=== PATIENT | female | born 1935 | race Caucasian/White ===

== ENCOUNTER 2019-07-26 02:48 | Inpatient (IN) ==
[2019-07-26] MEDS ORDERED: Naloxone 0.4 MG/ML INJ IVP PRN (05:44)
[2019-07-26] MEDS ORDERED: D5% in Water 1,000 ML IVC PRN (05:44)
[2019-07-26] MEDS ORDERED: Dextrose Gel 15 GM/37.5 ML TUBE PO PRN ×2 (05:44)
[2019-07-26] MEDS ORDERED: *HR* Dextrose 50 % in Water (Syg) 50 ML SYRINGE IVP PRN (05:44)
[2019-07-26] MEDS ORDERED: SODIUM CHLORIDE 0.9% IVPB ONE (05:49)
[2019-07-26] MEDS ORDERED: PHYTONADIONE IVPB ONE (05:49)
[2019-07-26 06:42] LABS: Basophils # 0.1 K/mcL (0.0-0.2); Basophils % 0.6 %; Eosinophils % 0.2 %; Hematocrit 33.9 % (35.3-44.9); Immature Granulocytes % 0.9 % (0-4); Lymphocytes # 0.9 K/mcL (0.6-4.6); Lymphocytes % 5.6 %; Mean Corpuscular HGB Conc 32.4 g/dL (31.6-35.5); Mean Corpuscular Hemoglobin 32.1 pg (28.0-33.3); Mean Corpuscular Volume 98.8 fL (83.0-100.0); Mean Platelet Volume 10.5 fL (9.4-12.4); Monocytes # 1.6 K/mcL (0.0-1.3); Monocytes % 10.1 %; Neutrophils # 12.7 K/mcL (1.6-8.9); Platelet Count 193 K/mcL (140-400); Red Blood Count 3.43 M/mcL (3.82-4.97); Red Cell Distribution Width 13.1 % (11.5-14.5); Segmented Neutrophils % 82.6 %; White Blood Count 15.4 K/mcL (4.3-11.1)
[2019-07-26] MEDS ORDERED: *HR* Phytonadione 10 MG/ML AMPUL SQ ONE (06:45)
[2019-07-26 06:54] LABS: Prothrombin Time 65.5 Seconds (9.4-12.1)
[2019-07-26 06:55] LABS: INR 5.8
[2019-07-26 07:01] LABS: Albumin 3.6 g/dL (3.5-5.7); Albumin/Globulin Ratio 1.3 (1.1-2.2); Bilirubin,Total 0.4 mg/dL (0.3-1.0); Calcium 8.6 mg/dL (8.6-10.3); Chol/HDL Ratio 2.3 (0-4.9); Globulin 2.8 g/dL (2.4-3.5); Potassium 5.1 mEq/L (3.5-5.1); Total Protein 6.4 g/dL (6.4-8.9)
[2019-07-26] MEDS ORDERED: Ondansetron 4 MG/2 ML VIAL IVP PRN (08:35)
[2019-07-26] MEDS ORDERED: Furosemide 40 MG TABLET PO SCH (09:00)
[2019-07-26] MEDS ORDERED: NON-FORMULARY MEDICATION 1 EACH EACH (Fluticasone/Vilanterol [Breo Ellipta 200-25 Mcg Inh] PO SCH (09:00)
[2019-07-26 09:39] LABS: Estimated Average Glucose 171 mg/dl
[2019-07-26] MEDS: Pregabalin 75 MG CAPSULE PO SCH ×2 (11:13→21:56)
[2019-07-26] MEDS: Cholecalciferol (D-3) 1,000 UNIT (25MCG) TABLET PO SCH (11:13)
[2019-07-26] MEDS: *HR* Digoxin 0.125 MG TABLET PO SCH (11:13)
[2019-07-26] MEDS: Insulin LISPRO 300 UNITS/3 ML VIAL SQ SCH ×3 (11:15→18:11)
[2019-07-26] MEDS ORDERED: Acetaminophen 325 MG TABLET PO PRN (11:18)
[2019-07-26] MEDS: Tiotropium 18 MCG inhalation IH SCH (11:51)
[2019-07-26 17:28] LABS: INR 5.9; Prothrombin Time 67.5 Seconds (9.4-12.1)
[2019-07-26] MEDS ORDERED: *HR* Phytonadione 5 MG TABLET PO ONE (17:34)
[2019-07-26] MEDS ORDERED: *HR* HYDROcodone/Acet 5/325 mg TABLET PO ONE (19:31)
[2019-07-26] MEDS: Budesonide/Formoterol 160/4.5 1 PUFF INH IH SCH (19:32)
[2019-07-26 23:06] LABS: Bilirubin,Urine Negative (Negative); Blood,Urine Moderate (Negative); Clarity,Urine Turbid (Clear); Color,Urine Yellow (Yellow); Glucose,Urine (UA) Normal (Normal); Ketones,Urine Negative (Negative); Leukocyte Esterase,Urine Large (Negative); Nitrite,Urine Negative (Negative); Protein,Urine 30 mg/dL (Neg-Trace); Specific Gravity,Urine 1.023 (1.010-1.025); Urobilinogen,Urine Normal (Normal)
[2019-07-26 23:09] LABS: Bacteria,Urine Moderate per hpf (None-Few); Hyaline Casts,Urine None Seen per lpf (None-Few); Squamous Epithelial Cell,Urine Few per lpf (None-Few); WBC,Urine TNTC per hpf (0-3)
[2019-07-27 04:09] LABS: INR 3.9
[2019-07-27 04:11] LABS: Basophils # 0.1 K/mcL (0.0-0.2); Basophils % 0.5 %; Eosinophils # 0.1 K/mcL (0.0-0.6); Eosinophils % 0.6 %; Hemoglobin 10.2 g/dL (11.5-15.4); Immature Granulocytes % 0.9 % (0-4); Lymphocytes % 21.8 %; Mean Corpuscular HGB Conc 32.9 g/dL (31.6-35.5); Mean Corpuscular Hemoglobin 32.3 pg (28.0-33.3); Mean Corpuscular Volume 98.1 fL (83.0-100.0); Mean Platelet Volume 10.5 fL (9.4-12.4); Monocytes # 1.9 K/mcL (0.0-1.3); Monocytes % 13.4 %; Neutrophils # 8.8 K/mcL (1.6-8.9); Platelet Count 204 K/mcL (140-400); Red Blood Count 3.16 M/mcL (3.82-4.97); Red Cell Distribution Width 13.1 % (11.5-14.5); Segmented Neutrophils % 62.8 %; White Blood Count 13.9 K/mcL (4.3-11.1)
[2019-07-27 04:15] LABS: Prothrombin Time 44.1 Seconds (9.4-12.1)
[2019-07-27 04:31] LABS: Calcium 9.1 mg/dL (8.6-10.3); Magnesium 2.1 mg/dL (1.6-2.6); Potassium 4.4 mEq/L (3.5-5.1)
[2019-07-27] MEDS: Levalbuterol Neb 0.63 MG/3 ML IH PRN ×2 (08:05→20:18)
[2019-07-27] MEDS: Budesonide/Formoterol 160/4.5 1 PUFF INH IH SCH ×2 (08:05→20:18)
[2019-07-27] MEDS: Tiotropium 18 MCG inhalation IH SCH (08:06)
[2019-07-27] MEDS ORDERED: Furosemide 20 MG TABLET PO SCH (09:00)
[2019-07-27] MEDS ORDERED: CefTRIAXone 1,000 MG VIAL ONE (09:14)
[2019-07-27] MEDS ORDERED: 0.9 % Sodium Chloride 250 ML ONE (09:16)
[2019-07-27] MEDS: Cholecalciferol (D-3) 1,000 UNIT (25MCG) TABLET PO SCH (09:19)
[2019-07-27] MEDS: Pregabalin 75 MG CAPSULE PO SCH ×2 (09:19→20:52)
[2019-07-27] MEDS: Insulin LISPRO 300 UNITS/3 ML VIAL SQ SCH ×3 (09:20→18:16)
[2019-07-27] MEDS: *HR* Digoxin 0.125 MG TABLET PO SCH (09:20)
[2019-07-27] MEDS: cefTRIAXone 1,000 MG in 0.9 % Sodium Chloride Mini Bag 100 ML IVPB SCH (12:53)
[2019-07-27 16:16] LABS: INR 1.8; Prothrombin Time 20.7 Seconds (9.4-12.1)
[2019-07-28] MEDS ORDERED: Insulin LISPRO 300 UNITS/3 ML VIAL SQ SCH
[2019-07-28 03:49] LABS: Basophils # 0.1 K/mcL (0.0-0.2); Basophils % 0.5 %; Eosinophils % 0.1 %; Hemoglobin 9.5 g/dL (11.5-15.4); Immature Granulocytes % 1.5 % (0-4); Lymphocytes # 2.6 K/mcL (0.6-4.6); Lymphocytes % 14.5 %; Mean Corpuscular HGB Conc 33.9 g/dL (31.6-35.5); Mean Corpuscular Volume 94.3 fL (83.0-100.0); Mean Platelet Volume 10.7 fL (9.4-12.4); Monocytes # 2.7 K/mcL (0.0-1.3); Monocytes % 14.5 %; Neutrophils # 12.6 K/mcL (1.6-8.9); Platelet Count 187 K/mcL (140-400); Red Blood Count 2.97 M/mcL (3.82-4.97); Segmented Neutrophils % 68.9 %; White Blood Count 18.3 K/mcL (4.3-11.1)
[2019-07-28 03:58] LABS: INR 1.4; Prothrombin Time 15.4 Seconds (9.4-12.1)
[2019-07-28 04:14] LABS: Calcium 8.6 mg/dL (8.6-10.3); Potassium 4.4 mEq/L (3.5-5.1)
[2019-07-28] MEDS: cefTRIAXone 1,000 MG in 0.9 % Sodium Chloride Mini Bag 100 ML IVPB SCH (06:01)
[2019-07-28] MEDS: Levalbuterol Neb 0.63 MG/3 ML IH PRN ×2 (08:02→21:27)
[2019-07-28] MEDS: Budesonide/Formoterol 160/4.5 1 PUFF INH IH SCH ×2 (08:02→21:27)
[2019-07-28] MEDS: Tiotropium 18 MCG inhalation IH SCH (08:02)
[2019-07-28] MEDS: *HR* Digoxin 0.125 MG TABLET PO SCH (09:14)
[2019-07-28] MEDS: Pregabalin 75 MG CAPSULE PO SCH ×2 (09:14→20:34)
[2019-07-28] MEDS: Cholecalciferol (D-3) 1,000 UNIT (25MCG) TABLET PO SCH (09:14)
[2019-07-28] MEDS ORDERED: Acetaminophen IV 1,000 MG/100 ML INFUS..BTL ONE (10:51)
[2019-07-28] MEDS ORDERED: Famotidine 20 MG/2 ML VIAL ONE (10:51)
[2019-07-28] MEDS ORDERED: Acetaminophen IV 1,000 MG/100 ML INFUS..BTL IVPB ONE (11:00)
[2019-07-28] MEDS ORDERED: Famotidine 20 MG/2 ML VIAL IVP ONE (11:00)
[2019-07-28] MEDS ORDERED: Clindamycin 900 MG/50 ML 900 MG/50 ML IV.SOLN IVPB ONE ×2 (11:02→11:28)
[2019-07-28] MEDS ORDERED: Ondansetron 4 MG/2 ML VIAL ONE (11:57)
[2019-07-28] MEDS ORDERED: *HR* Succinylcholine 200 MG/10 ML VIAL IVP ONE (11:57)
[2019-07-28] MEDS ORDERED: Lidocaine HCL 4 ML Topical Solution (Laryng-O-Jet Kit Sterile Pak) TP ONE (11:57)
[2019-07-28] MEDS ORDERED: *HR* Propofol 200 MG/20 ML VIAL IVP ONE (11:57)
[2019-07-28] MEDS ORDERED: Lidocaine -MPF 2% 2 ML VIAL ONE (11:57)
[2019-07-28] MEDS ORDERED: *HR* PHENYLEPHRINE 1,000 MCG/10 ML SYRINGE IVP ONE (11:57)
[2019-07-28] MEDS ORDERED: Morphine Sulfate 2 MG/ML SYRINGE IVP PRN (11:59)
[2019-07-28] MEDS ORDERED: Ondansetron 4 MG/2 ML VIAL IVP ONE (11:59)
[2019-07-28] MEDS ORDERED: Dexamethasone 4 MG/ML VIAL IVP ONE (11:59)
[2019-07-28] MEDS ORDERED: D5% in Water 1,000 ML IVC PRN (14:46)
[2019-07-28] MEDS ORDERED: Ondansetron 4 MG/2 ML VIAL IVP PRN (14:46)
[2019-07-28] MEDS ORDERED: Naloxone 0.4 MG/ML INJ IVP PRN (14:46)
[2019-07-28] MEDS ORDERED: *HR* Dextrose 50 % in Water (Syg) 50 ML SYRINGE IVP PRN (14:46)
[2019-07-28] MEDS ORDERED: Dextrose Gel 15 GM/37.5 ML TUBE PO PRN ×2 (14:46)
[2019-07-28] MEDS: Furosemide 20 MG TABLET PO SCH (17:16)
[2019-07-28] MEDS: Clindamycin 900 MG/50 ML 900 MG/50 ML IV.SOLN IVPB SCH (17:23)
[2019-07-29] MEDS: Clindamycin 900 MG/50 ML 900 MG/50 ML IV.SOLN IVPB SCH (00:31)
[2019-07-29 06:42] LABS: Basophils # 0.1 K/mcL (0.0-0.2); Basophils % 0.4 %; Eosinophils % 0.2 %; Hemoglobin 8.2 g/dL (11.5-15.4); Immature Granulocytes % 1.2 % (0-4); Lymphocytes # 1.4 K/mcL (0.6-4.6); Lymphocytes % 8.6 %; Mean Corpuscular HGB Conc 34.2 g/dL (31.6-35.5); Mean Corpuscular Hemoglobin 32.7 pg (28.0-33.3); Mean Corpuscular Volume 95.6 fL (83.0-100.0); Mean Platelet Volume 10.6 fL (9.4-12.4); Monocytes # 1.8 K/mcL (0.0-1.3); Monocytes % 11.4 %; Neutrophils # 12.5 K/mcL (1.6-8.9); Platelet Count 176 K/mcL (140-400); Red Blood Count 2.51 M/mcL (3.82-4.97); Red Cell Distribution Width 13.2 % (11.5-14.5); Segmented Neutrophils % 78.2 %
[2019-07-29] MEDS: Tiotropium 18 MCG inhalation IH SCH (06:55)
[2019-07-29 06:59] LABS: INR 1.4; Prothrombin Time 15.7 Seconds (9.4-12.1)
[2019-07-29] MEDS ORDERED: cefTRIAXone 1,000 MG in 0.9 % Sodium Chloride Mini Bag 100 ML IVPB SCH (07:00)
[2019-07-29 07:02] LABS: Potassium 4.6 mEq/L (3.5-5.1)
[2019-07-29] MEDS: Levalbuterol Neb 0.63 MG/3 ML IH PRN ×2 (07:26→21:42)
[2019-07-29] MEDS: Budesonide/Formoterol 160/4.5 1 PUFF INH IH SCH ×2 (07:27→21:42)
[2019-07-29] MEDS: Pregabalin 75 MG CAPSULE PO SCH ×2 (10:41→21:28)
[2019-07-29] MEDS: Cholecalciferol (D-3) 1,000 UNIT (25MCG) TABLET PO SCH (10:43)
[2019-07-29] MEDS: Furosemide 40 MG TABLET PO SCH (10:48)
[2019-07-29] MEDS: *HR* Digoxin 0.125 MG TABLET PO SCH (10:48)
[2019-07-29] MEDS ORDERED: D5% in Water 1,000 ML IVC PRN (11:01)
[2019-07-29 12:10] LABS: Hemoglobin 8.4 g/dL (11.5-15.4)
[2019-07-29] MEDS: Insulin LISPRO 300 UNITS/3 ML VIAL SQ SCH ×3 (13:32→21:21)
[2019-07-29] MEDS: Acetaminophen 325 MG TABLET PO PRN (17:05)
[2019-07-29] MEDS ORDERED: *HR* Warfarin 1 MG TABLET PO ONE (18:00)
[2019-07-29] MEDS ORDERED: Warfarin perPT PO PRN (18:00)
[2019-07-30] MEDS: Cortisporin *EAR*Susp 10 ML BOTTLE LEFT EAR PRN ×2 (01:36→20:54)
[2019-07-30 04:58] LABS: INR 1.3; Prothrombin Time 15.3 Seconds (9.4-12.1)
[2019-07-30 04:59] LABS: Basophils # 0.1 K/mcL (0.0-0.2); Basophils % 0.6 %; Eosinophils # 0.2 K/mcL (0.0-0.6); Eosinophils % 1.4 %; Hematocrit 24.4 % (35.3-44.9); Hemoglobin 8.1 g/dL (11.5-15.4); Immature Granulocytes % 1.8 % (0-4); Lymphocytes # 1.7 K/mcL (0.6-4.6); Lymphocytes % 11.5 %; Mean Corpuscular HGB Conc 33.2 g/dL (31.6-35.5); Mean Corpuscular Hemoglobin 32.7 pg (28.0-33.3); Mean Corpuscular Volume 98.4 fL (83.0-100.0); Mean Platelet Volume 10.6 fL (9.4-12.4); Monocytes # 1.6 K/mcL (0.0-1.3); Monocytes % 11.3 %; Neutrophils # 10.7 K/mcL (1.6-8.9); Nucleated Red Blood Cells 0.1 /100 WBC (0); Platelet Count 201 K/mcL (140-400); Red Blood Count 2.48 M/mcL (3.82-4.97); Red Cell Distribution Width 13.4 % (11.5-14.5); Segmented Neutrophils % 73.4 %; White Blood Count 14.5 K/mcL (4.3-11.1)
[2019-07-30 05:17] LABS: BUN/Creatinine Ratio 41 (6-26); Blood Urea Nitrogen 33 mg/dL (8-23); Calcium 8.2 mg/dL (8.6-10.3); Carbon Dioxide 29 mEq/L (23-29); Chloride 96 mEq/L (98-107); Glucose 180 mg/dL (70-105); Osmolality,Calculated 292 (280-300); Potassium 4.1 mEq/L (3.5-5.1); Sodium 135 mEq/L (136-145); eGFR For African Americans > 60 (> 60); eGFR For Non-African Americans > 60 (> 60)
[2019-07-30] MEDS: Levalbuterol Neb 0.63 MG/3 ML IH PRN ×2 (07:37→20:23)
[2019-07-30] MEDS: Budesonide/Formoterol 160/4.5 1 PUFF INH IH SCH ×2 (07:38→20:23)
[2019-07-30] MEDS: Tiotropium 18 MCG inhalation IH SCH (07:38)
[2019-07-30] MEDS: *HR* Digoxin 0.125 MG TABLET PO SCH (09:48)
[2019-07-30] MEDS: Acetaminophen 325 MG TABLET PO PRN ×2 (09:48→17:49)
[2019-07-30] MEDS: Sennosides 8.6 MG TABLET PO SCH (09:48)
[2019-07-30] MEDS: Cholecalciferol (D-3) 1,000 UNIT (25MCG) TABLET PO SCH (09:49)
[2019-07-30] MEDS: Pregabalin 75 MG CAPSULE PO SCH ×2 (09:49→20:52)
[2019-07-30] MEDS: Insulin LISPRO 300 UNITS/3 ML VIAL SQ SCH ×4 (09:50→20:54)
[2019-07-30] MEDS ORDERED: Bisacodyl 10 MG RECTAL SUPPOSITORY RC ONE (12:24)
[2019-07-30 12:40] LABS: Hematocrit 23.3 % (35.3-44.9); Hemoglobin 8.2 g/dL (11.5-15.4)
[2019-07-30] MEDS: Furosemide 20 MG TABLET PO SCH (15:08)
[2019-07-30] MEDS ORDERED: *HR* Warfarin 3 MG TABLET PO ONE (18:00)
[2019-07-31] MEDS: Cortisporin *EAR*Susp 10 ML BOTTLE LEFT EAR PRN ×2 (05:15→22:06)
[2019-07-31 06:53] LABS: Basophils % 0.2 %; Eosinophils # 0.3 K/mcL (0.0-0.6); Eosinophils % 2.1 %; Hematocrit 23.2 % (35.3-44.9); Hemoglobin 7.6 g/dL (11.5-15.4); Immature Granulocytes % 1.8 % (0-4); Lymphocytes # 1.5 K/mcL (0.6-4.6); Mean Corpuscular HGB Conc 32.8 g/dL (31.6-35.5); Mean Corpuscular Hemoglobin 32.6 pg (28.0-33.3); Mean Corpuscular Volume 99.6 fL (83.0-100.0); Mean Platelet Volume 10.3 fL (9.4-12.4); Monocytes # 1.6 K/mcL (0.0-1.3); Neutrophils # 12.6 K/mcL (1.6-8.9); Nucleated Red Blood Cells 0.1 /100 WBC (0); Platelet Count 228 K/mcL (140-400); Red Blood Count 2.33 M/mcL (3.82-4.97); Red Cell Distribution Width 13.6 % (11.5-14.5); Segmented Neutrophils % 76.9 %; White Blood Count 16.4 K/mcL (4.3-11.1)
[2019-07-31 06:56] LABS: INR 1.4; Prothrombin Time 15.6 Seconds (9.4-12.1)
[2019-07-31] MEDS: *HR* Digoxin 0.125 MG TABLET PO SCH (07:42)
[2019-07-31] MEDS: Furosemide 40 MG TABLET PO SCH (07:43)
[2019-07-31] MEDS: Acetaminophen 325 MG TABLET PO PRN ×2 (07:51→18:20)
[2019-07-31] MEDS: Pregabalin 75 MG CAPSULE PO SCH ×2 (07:52→20:44)
[2019-07-31] MEDS: Cholecalciferol (D-3) 1,000 UNIT (25MCG) TABLET PO SCH (07:52)
[2019-07-31] MEDS: Sennosides 8.6 MG TABLET PO SCH (07:52)
[2019-07-31] MEDS: Insulin LISPRO 300 UNITS/3 ML VIAL SQ SCH ×4 (07:53→20:44)
[2019-07-31] MEDS: Tiotropium 18 MCG inhalation IH SCH (08:12)
[2019-07-31] MEDS: Levalbuterol Neb 0.63 MG/3 ML IH PRN ×2 (08:12→21:54)
[2019-07-31] MEDS: Budesonide/Formoterol 160/4.5 1 PUFF INH IH SCH ×2 (08:13→21:54)
[2019-07-31] MEDS ORDERED: 0.9 % Sodium Chloride 500 ML ONE (10:46)
[2019-07-31] MEDS ORDERED: *HR* Warfarin 4 MG TABLET PO ONE (18:00)
[2019-07-31] MEDS ORDERED: Insulin DETEMIR 100 UNIT/ML X5UNITS SQ SCH (21:00)
[2019-08-01 05:05] LABS: INR 1.5; Prothrombin Time 17.2 Seconds (9.4-12.1)
[2019-08-01 05:08] LABS: Hematocrit 28.9 % (35.3-44.9); Mean Corpuscular HGB Conc 33.6 g/dL (31.6-35.5); Mean Corpuscular Hemoglobin 31.5 pg (28.0-33.3); Mean Corpuscular Volume 93.8 fL (83.0-100.0); Mean Platelet Volume 10.4 fL (9.4-12.4); Platelet Count 255 K/mcL (140-400); Red Blood Count 3.08 M/mcL (3.82-4.97); Red Cell Distribution Width 15.6 % (11.5-14.5); White Blood Count 16.5 K/mcL (4.3-11.1)
[2019-08-01 05:13] LABS: Hemoglobin 9.7 g/dL (11.5-15.4)
[2019-08-01 05:21] LABS: BUN/Creatinine Ratio 36 (6-26); Blood Urea Nitrogen 27 mg/dL (8-23); Calcium 8.6 mg/dL (8.6-10.3); Carbon Dioxide 33 mEq/L (23-29); Chloride 94 mEq/L (98-107); Glucose 161 mg/dL (70-105); Osmolality,Calculated 287 (280-300); Potassium 4.1 mEq/L (3.5-5.1); Sodium 134 mEq/L (136-145); eGFR For African Americans > 60 (> 60); eGFR For Non-African Americans > 60 (> 60)
[2019-08-01] MEDS: Cholecalciferol (D-3) 1,000 UNIT (25MCG) TABLET PO SCH (07:53)
[2019-08-01] MEDS: Pregabalin 75 MG CAPSULE PO SCH (07:54)
[2019-08-01] MEDS: Acetaminophen 325 MG TABLET PO PRN (07:54)
[2019-08-01] MEDS: Sennosides 8.6 MG TABLET PO SCH (07:54)
[2019-08-01] MEDS: *HR* Digoxin 0.125 MG TABLET PO SCH (07:54)
[2019-08-01] MEDS: Insulin LISPRO 300 UNITS/3 ML VIAL SQ SCH (07:55)
[2019-08-01] MEDS ORDERED: Insulin LISPRO 300 UNITS/3 ML VIAL SQ SCH (08:00)
[2019-08-01] MEDS: Levalbuterol Neb 0.63 MG/3 ML IH PRN (10:15)
[2019-08-01] MEDS: Tiotropium 18 MCG inhalation IH SCH (10:15)
[2019-08-01] MEDS: Budesonide/Formoterol 160/4.5 1 PUFF INH IH SCH (10:15)
[2019-08-01 12:40] VITALS: BP 106/71
== END 2019-08-01 13:15 | DRG 481 ==
LOC: 3ANU → SUATTDRO 06:26 → 3NENU 07-27 11:33
PROVIDERS: ADMIT Family Medicine; ATTEND Internal Medicine

== ENCOUNTER 2020-01-09 14:24 | Inpatient (IN) ==
[2020-01-09 15:19] LABS: Basophils # 0.1 K/mcL (0.0-0.2); Basophils % 0.5 %; Eosinophils # 0.2 K/mcL (0.0-0.6); Eosinophils % 2.2 %; Hematocrit 40.3 % (35.3-44.9); Hemoglobin 12.9 g/dL (11.5-15.4); Immature Granulocytes % 0.7 % (0-4); Lymphocytes # 2.1 K/mcL (0.6-4.6); Lymphocytes % 22.5 %; Mean Corpuscular Hemoglobin 31.2 pg (28.0-33.3); Mean Corpuscular Volume 97.3 fL (83.0-100.0); Mean Platelet Volume 10.6 fL (9.4-12.4); Monocytes # 0.8 K/mcL (0.0-1.3); Monocytes % 8.5 %; Neutrophils # 6.2 K/mcL (1.6-8.9); Platelet Count 249 K/mcL (140-400); Red Blood Count 4.14 M/mcL (3.82-4.97); Red Cell Distribution Width 13.8 % (11.5-14.5); Segmented Neutrophils % 65.6 %; White Blood Count 9.4 K/mcL (4.3-11.1)
[2020-01-09 15:37] LABS: BUN/Creatinine Ratio 21 (6-26); Blood Urea Nitrogen 23 mg/dL (8-23); Calcium 8.9 mg/dL (8.6-10.3); Carbon Dioxide 32 mEq/L (23-29); Chloride 99 mEq/L (98-107); Glucose 192 mg/dL (70-105); Osmolality,Calculated 293 (280-300); Potassium 3.6 mEq/L (3.5-5.1); Sodium 137 mEq/L (136-145); eGFR For African Americans 58 (> 60); eGFR For Non-African Americans 48 (> 60)
[2020-01-09 15:38] LABS: Troponin I < 0.03 ng/mL (< 0.04)
[2020-01-09] MEDS ORDERED: Isovue-370 500 ML BOTTLE IVP ONE (16:35)
[2020-01-09] MEDS ORDERED: Acetaminophen 325 MG TABLET PO PRN (18:33)
[2020-01-09] MEDS ORDERED: Ondansetron 4 MG/2 ML VIAL IVP PRN (18:33)
[2020-01-09] MEDS ORDERED: Furosemide 40 MG/4 ML VIAL ONE (18:52)
[2020-01-09] MEDS ORDERED: Nitroglycerin 1 INCH/GM PACKET ONE (18:52)
[2020-01-09] MEDS ORDERED: polyethylene glycoL 3350 17 GM POWD.PACK PO PRN (18:55)
[2020-01-09] MEDS ORDERED: Levalbuterol Neb 0.63 MG/3 ML IH PRN (18:55)
[2020-01-09] MEDS: Furosemide 40 MG/4 ML VIAL IVP ONE ×2 (18:55→20:44)
[2020-01-09] MEDS: Nitroglycerin 1 INCH/GM PACKET TP ONE ×2 (18:55→20:33)
[2020-01-09] MEDS ORDERED: *HR* Warfarin 1 MG TABLET PO SCH (19:00)
[2020-01-09] MEDS: Pregabalin 75 MG CAPSULE PO SCH (20:44)
[2020-01-09] MEDS ORDERED: traZODone 50 MG TABLET PO PRN (21:00)
[2020-01-09] MEDS ORDERED: Warfarin perPT PO PRN (21:03)
[2020-01-09 21:27] LABS: INR 2.5; Prothrombin Time 28.7 Seconds (9.4-12.1)
[2020-01-09] MEDS ORDERED: *HR* Warfarin 2 MG TABLET PO ONE (21:45)
[2020-01-10 03:50] LABS: INR 2.7
[2020-01-10 04:05] LABS: BUN/Creatinine Ratio 22 (6-26); Blood Urea Nitrogen 22 mg/dL (8-23); Calcium 9.1 mg/dL (8.6-10.3); Carbon Dioxide 33 mEq/L (23-29); Chloride 98 mEq/L (98-107); Glucose 180 mg/dL (70-105); Magnesium 1.9 mg/dL (1.6-2.6); Osmolality,Calculated 294 (280-300); Potassium 3.4 mEq/L (3.5-5.1); Sodium 138 mEq/L (136-145); eGFR For African Americans > 60 (> 60); eGFR For Non-African Americans 52 (> 60)
[2020-01-10 04:06] LABS: Troponin I < 0.03 ng/mL (< 0.04)
[2020-01-10] MEDS: Furosemide 40 MG/4 ML VIAL IVP SCH ×2 (05:37→17:24)
[2020-01-10] MEDS ORDERED: *HR* Enoxaparin 30 MG/0.3 ML SYRINGE SQ SCH (06:00)
[2020-01-10] MEDS: Budesonide/Formoterol 160/4.5 1 PUFF INH IH SCH (07:36)
[2020-01-10] MEDS: Tiotropium 18 MCG inhalation IH SCH (07:37)
[2020-01-10] MEDS ORDERED: atenoloL 25 MG TABLET PO SCH (09:00)
[2020-01-10] MEDS: *HR* Digoxin 0.125 MG TABLET PO SCH (10:31)
[2020-01-10] MEDS: Pregabalin 75 MG CAPSULE PO SCH ×2 (10:31→21:39)
[2020-01-10] MEDS ORDERED: *HR* Dextrose 50 % in Water (Syg) 50 ML SYRINGE IVP PRN (11:19)
[2020-01-10] MEDS ORDERED: Dextrose Gel 15 GM/37.5 ML TUBE PO PRN ×2 (11:19)
[2020-01-10] MEDS ORDERED: D5% in Water 1,000 ML IVC PRN (11:19)
[2020-01-10] MEDS: Insulin LISPRO 300 UNITS/3 ML VIAL SQ SCH ×3 (12:49→21:40)
[2020-01-10] MEDS ORDERED: *HR* Warfarin 1 MG TABLET PO ONE (18:00)
[2020-01-10] MEDS ORDERED: Warfarin perPT PO SCH (18:55)
[2020-01-11 02:24] LABS: Hematocrit 39.8 % (35.3-44.9); Hemoglobin 12.8 g/dL (11.5-15.4); Mean Corpuscular HGB Conc 32.2 g/dL (31.6-35.5); Mean Corpuscular Hemoglobin 30.9 pg (28.0-33.3); Mean Corpuscular Volume 96.1 fL (83.0-100.0); Mean Platelet Volume 10.7 fL (9.4-12.4); Platelet Count 252 K/mcL (140-400); Red Blood Count 4.14 M/mcL (3.82-4.97); Red Cell Distribution Width 13.5 % (11.5-14.5)
[2020-01-11 02:35] LABS: INR 2.5
[2020-01-11 02:50] LABS: Calcium 9.4 mg/dL (8.6-10.3); Potassium 4.8 mEq/L (3.5-5.1)
[2020-01-11] MEDS: Furosemide 40 MG/4 ML VIAL IVP SCH ×2 (05:48→16:14)
[2020-01-11] MEDS: Tiotropium 18 MCG inhalation IH SCH (07:45)
[2020-01-11] MEDS: Budesonide/Formoterol 160/4.5 1 PUFF INH IH SCH (07:46)
[2020-01-11] MEDS: lisinopriL 5 MG TABLET PO SCH (08:23)
[2020-01-11] MEDS: Insulin LISPRO 300 UNITS/3 ML VIAL SQ SCH ×4 (08:23→20:03)
[2020-01-11] MEDS: *HR* Digoxin 0.125 MG TABLET PO SCH (08:23)
[2020-01-11] MEDS: Pregabalin 75 MG CAPSULE PO SCH ×2 (08:23→20:02)
[2020-01-11] MEDS ORDERED: *HR* Warfarin 2 MG TABLET PO ONE (18:00)
[2020-01-12 02:22] LABS: INR 2.5; Prothrombin Time 28.1 Seconds (9.4-12.1)
[2020-01-12 02:37] LABS: Calcium 9.7 mg/dL (8.6-10.3); Potassium 4.5 mEq/L (3.5-5.1)
[2020-01-12] MEDS: Furosemide 40 MG/4 ML VIAL IVP SCH (06:13)
[2020-01-12 07:17] VITALS: BP 153/82
[2020-01-12] MEDS: Budesonide/Formoterol 160/4.5 1 PUFF INH IH SCH (07:48)
[2020-01-12] MEDS: Tiotropium 18 MCG inhalation IH SCH (07:49)
[2020-01-12] MEDS: lisinopriL 5 MG TABLET PO SCH (08:10)
[2020-01-12] MEDS: *HR* Digoxin 0.125 MG TABLET PO SCH (08:10)
[2020-01-12] MEDS: Pregabalin 75 MG CAPSULE PO SCH (08:11)
[2020-01-12] MEDS: Insulin LISPRO 300 UNITS/3 ML VIAL SQ SCH ×2 (08:11→11:48)
[2020-01-12] MEDS ORDERED: *HR* Warfarin 2 MG TABLET PO ONE (18:00)
== END 2020-01-12 13:11 | disposition home health service (06) | DRG 291 ==
LOC: EMEROOARM 14:24 → 3BNU 14:24
PROVIDERS: ADMIT Internal Medicine; ATTEND Internal Medicine